=== PATIENT | male | born 1985 | race Caucasian/White ===

== ENCOUNTER 2019-02-25 20:59 | Emergency (ER) | payer OTHER ==
[~2019-02-25] VITALS: Ht 175.3 cm; Wt 99.8 kg
== END 2019-02-25 22:24 | disposition home or self-care (01) ==
LOC: ER 20:59
DX: S93.692A Other sprain of left foot, initial encounter (principal); X50.3XXA Overexertion from repetitive movements, initial encounter; Y93.67 Activity, basketball; Y92.098 Other place in other non-institutional residence as the place of occurrence of the external cause; Y99.8 Other external cause status

== ENCOUNTER 2021-04-13 17:59 | Emergency (ER) | payer OTHER ==
[~2021-04-13] VITALS: Ht 177.8 cm; Wt 104.3 kg
[2021-04-13] MEDS ORDERED: DICLOFENAC SODI75 MG PO (20:17)
== END 2021-04-13 20:28 | disposition home or self-care (01) ==
LOC: ER 17:59
DX: M94.0 Chondrocostal junction syndrome [Tietze] (principal)

== ENCOUNTER 2024-11-25 01:57 | Emergency (ER) | payer OTHER ==
[~2024-11-25] VITALS: Ht 177.8 cm; Wt 102.1 kg
[~2024-11-25 01:57] MED LIST: DICLOFENAC SODI75 MG PO
[2024-11-25] MEDS ORDERED: KETOROLAC TROMETHAMINE 30 MG VIAL IV STA (02:16)
[2024-11-25] MEDS ORDERED: HALOPERIDOL LACTATE 5 MG/ML AMPUL IM STA (02:16)
[2024-11-25] MEDS ORDERED: DIPHENHYDRAMINE HCL 50 MG/ML VIAL 1ML IM STA (02:17)
[2024-11-25] MEDS ORDERED: KETOROLAC TROMETHAMINE 30 MG VIAL ONE (02:20)
[2024-11-25] MEDS ORDERED: HALOPERIDOL LACTATE 5 MG/ML AMPUL ONE (02:20)
[2024-11-25] MEDS ORDERED: DIPHENHYDRAMINE HCL 50 MG/ML VIAL 1ML ONE (02:20)
[2024-11-25 03:20] LABS: HEMATOCRIT 41.8 % (39.0-48.0); HEMOGLOBIN 14.5 g/dL (13-16.00); MEAN CELL VOLUME 87.7 fL (80.0-100.00); MEAN CORPUSCULAR HEMOGLOBIN 30.4 pg (27.00-32.0); MEAN CORPUSCULAR HGB CONC 34.7 g/dl (32.0-36.0); PLATELET COUNT 266 K/uL (150-450); RED BLOOD COUNT 4.77 M/uL (4.00-6.00); RED CELL DISTRIBUTION WIDTH 14.4 % (11.5-14.5)
[2024-11-25 04:12] LABS: ABG PH 7.417 (7.35-7.45); ABG PO2 95.4 mmHg (80-100); BASE EXCESS -1.8 mmol/l; SaO2 97.5 %; Tco2 23.1 mmol/l; allen test SATISFACTORY; mode ROOM AIR; o2 21 %; puncture site RADIAL LEFT
[2024-11-25 04:13] LABS: ABG pCO2 34.9 mmHg (35-45)
== END 2024-11-25 05:34 | disposition home or self-care (01) ==
LOC: ER 01:58
DX: F41.9 Anxiety disorder, unspecified (principal); G43.909 Migraine, unspecified, not intractable, without status migrainosus